=== PATIENT | female | born 1945 | race Caucasian/White ===

== ENCOUNTER 2018-03-12 10:37 | Emergency (ER) | payer MEDICARE, BC ==
[~2018-03-12] VITALS: Ht 167.6 cm; Wt 59.9 kg
--- NOTE | 2018-03-12 10:47 | NUR ---
Dr white at the bedside for MSE.
--- NOTE | 2018-03-12 11:29 | NUR ---
Patient discharged to home in stable conditon. Written and verbal after care instructions given. Patient verbalizes understanding of instructions.
[2018-03-12 11:31] VITALS: BP 121/74
== END 2018-03-12 11:35 | disposition home or self-care (01) ==
LOC: ER 10:37
DX: S62.617A Displaced fracture of proximal phalanx of left little finger, initial encounter for closed fracture (principal); W18.30XA Fall on same level, unspecified, initial encounter; Y93.89 Activity, other specified; Y92.89 Other specified places as the place of occurrence of the external cause; Y99.8 Other external cause status
CPT/HCPCS: 73130; 73564; 99284; A4663